=== PATIENT | female | born 1980 | race Hispanic/Latino ===

== ENCOUNTER 2019-10-31 20:04 | Emergency (ER) | payer SELFPAY ==
[2019-10-31] MEDS ORDERED: KETOROLAC TROMETHAMINE 60 MG/2 ML VIAL ONE (21:02)
[2019-10-31] MEDS ORDERED: ORPHENADRINE CITRATE 30 MG/ML ML ONE (21:02)
== END 2019-10-31 21:45 | disposition home or self-care (01) ==
LOC: EDH 20:04
DX: S39.092A Other injury of muscle, fascia and tendon of lower back, initial encounter (principal); X58.XXXA Exposure to other specified factors, initial encounter; Y93.89 Activity, other specified; Y92.89 Other specified places as the place of occurrence of the external cause; Y99.8 Other external cause status; Z72.0 Tobacco use
CPT/HCPCS: 81025; 96372 ×2; 99284; J1885; J2360